=== PATIENT | male | born 1975 | race Caucasian/White ===

== ENCOUNTER → 2019-10-07 | Outpatient (REF) | payer BC | LOC: M SFHCPLAZ 10:47 | PROVIDERS: ATTEND Family Medicine | DX: Z13.220 Encounter for screening for lipoid disorders (principal); Z13.1 Encounter for screening for diabetes mellitus; I48.91 Unspecified atrial fibrillation; Z53.9 Procedure and treatment not carried out, unspecified reason ==

== ENCOUNTER → 2019-12-14 | Outpatient (REF) | payer BC ==
[2019-12-14 18:35] LABS: BLOOD UREA NITROGEN 12 MG/DL (7-18); CALCIUM LEVEL 9.8 MG/DL (8.5-10.1); CARBON DIOXIDE LEVEL 29 MEQ/L (21-32); CHLORIDE LEVEL 104 MEQ/L (98-107); CHOLESTEROL LEVEL 146 MG/DL (<200); CHOLESTEROL RISK RATIO 5.034 (<5); CREATININE FOR GFR 0.92 MG/DL (0.70-1.30); FREE T4 0.91 NG/DL (0.76-1.46); GLOMERULAR FILTRATION RATE > 60.0 (>60); GLUCOSE, FASTING 95 MG/DL (70-100); HDL CHOLESTEROL 29 MG/DL (>40); LDL CHOLESTEROL 87 MG/DL (<100); NON-HDL-C 117 MG/DL; POTASSIUM SERUM 4.7 MEQ/L (3.5-5.1); SODIUM LEVEL 137 MEQ/L (136-145); TRIGLYCERIDES LEVEL 149 MG/DL (<150)
== END ==
LOC: M SFHCPLAZ 14:37
PROVIDERS: ATTEND Family Medicine
DX: I48.91 Unspecified atrial fibrillation (principal); Z13.1 Encounter for screening for diabetes mellitus; Z13.220 Encounter for screening for lipoid disorders

== ENCOUNTER → 2024-07-05 | Outpatient (CLI) | payer BC | LOC: M PLAIMG 14:34 | PROVIDERS: ATTEND Internal Medicine | DX: I48.11 Longstanding persistent atrial fibrillation (principal) ==

== ENCOUNTER → 2024-09-02 | Outpatient (CLI) | payer BC ==
[2024-09-02 15:11] LABS: THYROID STIMULATING HORMONE 108.643 uIU/ML (0.55-4.78)
[2024-09-02 15:12] LABS: FREE T4 0.78 NG/DL (0.89-1.76)
== END ==
LOC: M RAD 14:02
PROVIDERS: ATTEND Registered Nurse
DX: R94.6 Abnormal results of thyroid function studies (principal); E03.9 Hypothyroidism, unspecified